=== PATIENT | male | born 1970 | race Caucasian/White ===

== ENCOUNTER 2017-10-07 13:09 | Observation (INO) | payer BC, OTHER ==
[2017-10-07 13:30] LABS: #Basophils 0.1 thou/uL (0.0-0.2); #Eosinphils 0.2 thou/uL (0.0-0.7); #Lymphocytes 3.6 thou/uL (1.20-3.40); #Monocytes 0.8 thou/uL (0.11-0.59); #Neutrophils 7.3 thou/uL (1.40-6.50); %Lymphocytes 29.9 % (21.0-51.0); %Monocytes 6.4 % (0.0-10.0); %Neutrophils 60.7 % (42.0-75.0); Hemoglobin 12.5 g/dL (14.0-18.0); Mean Corpuscular HGB CONC 34.2 g/dL (32.0-36.0); Mean Corpuscular Hemoglobin 30.6 pg (27.0-31.0); Mean Corpuscular Volume 89.3 fl (80.0-94.0); Mean Platelet Volume 6.9 fL (7.4-10.4); Platelet Count 301 thou/uL (130-400); RBC Distribution Width 12.9 % (11.5-14.5); Red Blood Cell (RBC) Count 4.09 mill/uL (4.70-6.10)
[2017-10-07 13:51] LABS: ALT (SGPT) 33 U/L (8-55); AST (SGOT) 24 U/L (5-34); Albumin 4.4 g/dL (3.5-5.0); Alkaline Phosphatase 119 U/L (40-150); Anion Gap 12 mmol/L (10-20); BUN (Urea Nitrogen) 15 mg/dL (8.9-20.6); Bilirubin, Total 0.5 mg/dL (0.2-1.2); Calc. Creatinine Clearance 0 mL/min (70-130); Calcium 9.5 mg/dL (7.8-10.44); Carbon Dioxide 28 mmol/L (22-29); Chloride 102 mmol/L (98-107); Estimated GFR-MDRD 85; Globulin 3.2 g/dL (2.4-3.5); Glucose 129 mg/dL (70-105); Potassium 3.5 mmol/L (3.5-5.1); Protein, Total 7.6 g/dL (6.0-8.3); Sodium 138 mmol/L (136-145)
[2017-10-07 13:55] LABS: CKMB 0.5 ng/mL (0-6.6); Troponin I Less than 0.010 ng/mL (< 0.028)
[2017-10-07] MEDS ORDERED: ISOVUE-370 76%-LOCM 1 ML ONE (14:00)
[2017-10-07] MEDS ORDERED: Ketorolac Tromethamine 30 MG/ML VIAL ONE (14:01)
[2017-10-07] MEDS ORDERED: Nitroglycerin 0.4 MG TAB (25 Tab Bottle) ONE (14:01)
[2017-10-07] MEDS ORDERED: Nitroglycerin 2% Ointment 1 INCH/1 GM Packet ONE (14:07)
[2017-10-07] MEDS ORDERED: Guaifenesin DM 100-10/5 ML UDCUP PO PRN (14:53)
[2017-10-07] MEDS ORDERED: Acetaminophen 325 MG TAB PO PRN (14:53)
--- NOTE | 2017-10-07 14:58 | RAD ---
PORTABLE UPRIGHT FRONTAL CHEST RADIOGRAPH: 10/07/2017 HISTORY: Pain. COMPARISON: None. FINDINGS: Mild pulmonary vascular prominence. No pneumothorax, pleural fluid, focal consolidation, or alveolar edema. IMPRESSION: No acute findings. POS: [facility]
--- NOTE | 2017-10-07 15:07 | CT ---
CT ANGIOGRAM CHEST: CT ANGIOGRAM ABDOMEN: HISTORY: Aortic dissection. Hypertension. Hyperlipidemia. Low chest pain. COMPARISON: None. TECHNIQUE: CT angiogram chest and abdomen performed after the intravenous administration of contrast, and 3D juan dering provided. FINDINGS: No aneurysmal dilatation of the aorta. No dissection. No intimal flap. No intramural hematoma. Minimal atherosclerotic plaque of the abdominal aorta. Single bilateral renal arteries. Pulmonary trunk size is not dilated. No pericardial effusion. There is focal flash filling, likely hemangioma, in hepatic segment 8, with adjacent transhepatic att enuation difference. The lungs are clear. No pneumothorax or effusion. No spine compression fracture. No displaced rib fracture. IMPRESSION: 1. No acute aortic dissection, aneurysm, or intramural hematoma. 2. No acute abnormality in the chest or abdomen. POS: [facility]
[2017-10-07 16:23] VITALS: BMI 32.2
[2017-10-07] MEDS ORDERED: diphenhydrAMINE 50 MG/ML VIAL IVP SCH (16:30)
[2017-10-07] MEDS ORDERED: Famotidine 20 MG TAB PO SCH (16:30)
[2017-10-07 17:11] LABS: Troponin I Less than 0.010 ng/mL (< 0.028)
[2017-10-07 19:48] LABS: Troponin I Less than 0.010 ng/mL (< 0.028)
--- NOTE | 2017-10-07 19:59 | HP ---
REASON FOR ADMISSION: Chest pain. HISTORY OF PRESENT ILLNESS: The patient gives history of left-sided chest pain that started around 10:00 this morning. This was radiating to left arm. He had trouble taking nice deep breaths due to severe pain. There is no relation to his breathing as such. He also developed headache, which is generalized. The chest pain was 10/10 in intensity. No cough or fever. No complaints of palpitation, PND or orthopnea. Patient states he has a followup appointment to see Dr. Lehman tomorrow at 3:00 p.m. He had a cardiac catheterization done in 2017, which showed mild to moderate coronary artery disease and a leaky valve per patient. He has had one follow up prior to this 6 months back to see Dr. Lehman and the next one is tomorrow. PAST MEDICAL/SURGICAL HISTORY: Gout, chronic oral ulcers for which he sees Dr. Yap, history of asthma, mild coronary artery disease, left forearm and hand surgery, right foot surgery, dyslipidemia, mood disorder, GERD. CURRENT MEDICATIONS: The patient is on Toprol-XL daily, Lipitor 40 mg p.o. at bedtime, Protonix 40 mg p.o. daily, hydrochlorothiazide 25 mg p.o. daily, lisinopril 40 mg daily, Prozac 40 mg daily, Xanax 1 mg p.o. at bedtime, allopurinol 300 mg p.o. daily, dapsone 150 mg twice daily, Mitigare for oral ulcers. ALLERGIES: MOTRIN. PERSONAL HISTORY: Chews tobacco, does not abuse alcohol or drugs. Lives with his . FAMILY HISTORY: Mother has had history of small cell lung cancer and in her 60s. He does not know much about his father. CODE STATUS: FULL. REVIEW OF SYSTEMS: The following complete review of systems was negative, unless otherwise mentioned in the HPI or below: Constitutional: Weight loss or gain, ability to conduct usual activities. Skin: Rash, itching. Eyes: Double vision, pain. ENT/Mouth: Nose bleeding, neck stiffness, pain, tenderness. Cardiovascular: Palpitations, dyspnea on exertion, orthopnea. Respiratory: Shortness of breath, wheezing, cough, hemoptysis, fever or night sweats. Gastrointestinal: Poor appetite, abdominal pain, heartburn, nausea, vomiting, constipation, or diarrhea. Genitourinary: Urgency, frequency, dysuria, nocturia. Musculoskeletal: Pain, swelling. Neurologic/Psychiatric: Anxiety, depression. Allergy/Immunologic: Skin rash, bleeding tendency. PHYSICAL EXAMINATION: GENERAL: The patient is a 47-year-old male who is currently not in any acute distress. VITAL SIGNS: Blood pressure 134/76, pulse 76 per minute, respiratory rate 18 per minute, temperature 98 degrees Fahrenheit, saturating 94% on room air. NECK: Supple. No elevated JVD. HEENT: Eyes, extraocular muscles intact. Pupils reacting to light. Oral cavity, mucous membranes are moist. No exudates or congestion. CARDIOVASCULAR: S1, S2 heard. Regular rhythm. RESPIRATORY: Air entry 1+ bilaterally. No rales or rhonchi. ABDOMEN: Soft, bowel sounds heard. No tenderness, rigidity or guarding. EXTREMITIES: No peripheral edema or calf tenderness. VASCULAR: Peripheral pulses 1+ bilateral, no ischemic ulcerations or gangrene. CENTRAL NERVOUS SYSTEM: No gross focal deficits seen. Patient is alert, awake , oriented well. PSYCHIATRIC: The patient's mood is euthymic. No hallucinations or delusions. LABORATORY AND X-RAY FINDINGS: EKG done shows normal sinus rhythm at 76 beats per minute. Chest x-ray done shows no acute abnormalities. First set of cardiac enzymes are negative. Albumin is 4, serum glucose 129, BUN 15, creatinine 0.9. Electrolytes are stable. White count of 12, H and H 12 and 36 , platelet count 301 with 60% neutrophils, MCV is 89. CT dissection protocol has been done, the official results are pending at present. CLINICAL IMPRESSION AND PLAN: The patient will be under observation on telemetry for chest pain to rule out ACS. He has had cardiac catheterization done last year in Dr. Lehman's office and was told he has mild to moderate disease, but there was no flow limiting disease. He was also told he has a leaky valve. He has a followup appointment to see Dr. Lehman tomorrow at 3:00 p.m. We will obtain 2 more sets of troponin. If his enzymes are negative and the patient is asymptomatic, he will be discharged home later this evening. I have also asked Dr. Lehman's office to fax over the results of his angiogram and echo. We will continue him on Plavix as patient is allergic to NSAIDs, and home dose of XANAX, ALLOPURINOL, LOPRESSOR at a lower dose and LISINOPRIL along with PROZAC as before. We will continue to closely monitor him on telemetry. MTDD
[2017-10-07] MEDS: Famotidine 20 MG TAB PO SCH (20:54)
[2017-10-07] MEDS: Metoprolol Tartrate 25 MG TAB PO SCH (20:55)
[2017-10-07] MEDS: Nitroglycerin 2% Ointment 1 INCH/1 GM Packet TOP SCH (20:56)
[2017-10-07] MEDS ORDERED: ALPRAZolam 1 MG TAB PO SCH (21:00)
[2017-10-07] MEDS ORDERED: Allopurinol 300 MG TAB PO SCH (21:00)
[2017-10-07] MEDS ORDERED: Lisinopril 20 MG TAB PO SCH (21:00)
[2017-10-07] MEDS ORDERED: FLUoxetine HCl 20 MG CAP PO SCH (21:00)
[2017-10-08 05:24] LABS: #Lymphocytes 1.4 thou/uL (1.20-3.40); #Monocytes 0.3 thou/uL (0.11-0.59); %Basophils 0.3 % (0.0-1.0); %Eosinophils 0.3 % (0.0-10.0); %Lymphocytes 18.1 % (21.0-51.0); %Monocytes 4.2 % (0.0-10.0); %Neutrophils 77.1 % (42.0-75.0); Hemoglobin 11.4 g/dL (14.0-18.0); Mean Corpuscular HGB CONC 33.5 g/dL (32.0-36.0); Mean Corpuscular Hemoglobin 30.3 pg (27.0-31.0); Mean Corpuscular Volume 90.3 fL (78.0-98.0); Mean Platelet Volume 7.4 fL (7.4-10.4); Platelet Count 282 thou/uL (130-400); RBC Distribution Width 12.8 % (11.5-14.5); Red Blood Cell (RBC) Count 3.75 mill/uL (4.70-6.10); White Blood Cell (WBC) Count 7.7 thou/uL (4.8-10.8)
[2017-10-08] MEDS: Nitroglycerin 2% Ointment 1 INCH/1 GM Packet TOP SCH (05:34)
[2017-10-08 06:02] LABS: Anion Gap 14 mmol/L (10-20); BUN (Urea Nitrogen) 15 mg/dL (8.9-20.6); Calc. Creatinine Clearance 158 mL/min (70-130); Calcium 9.2 mg/dL (7.8-10.44); Carbon Dioxide 25 mmol/L (22-29); Chloride 101 mmol/L (98-107); Cholesterol 148 mg/dl (< 200 Desired); Estimated GFR-MDRD 84; Glucose 195 mg/dL (70-105); HDL Cholesterol 37 mg/dL (>60 Neg Risk); LDL Cholesterol, Calculated 91 mg/dL; Potassium 3.6 mmol/L (3.5-5.1); Sodium 136 mmol/L (136-145); Triglycerides 102 mg/dL (Less than 150)
[2017-10-08 08:02] VITALS: BP 102/55; TEMP 97.2
[2017-10-08] MEDS ORDERED: Enoxaparin Sodium 40 MG/0.4 ML SYRINGE SC SCH (09:00)
[2017-10-08] MEDS ORDERED: Clopidogrel Bisulfate 75 MG TAB PO SCH (09:00)
[2017-10-08] MEDS: Famotidine 20 MG TAB PO SCH (09:24)
[2017-10-08] MEDS: Metoprolol Tartrate 25 MG TAB PO SCH (09:24)
[2017-10-08] MEDS ORDERED: Lidocaine 5% Patch TD STA (10:12)
--- NOTE | 2017-10-08 13:15 | PDOC.PN ---
- Subjective Encounter Start Date: 10/08/17 Encounter Start Time: 07:00 Subjective: has left chest wall pain, no sob or palp -: at bedside - Objective MAR Reviewed: Yes Vital Signs & Weight: Vital Signs (12 hours) Temp Pulse Resp BP BP Pulse Ox 10/08/17 08:15 97.2 F L 68 18 10/08/17 07:30 97.2 F L 68 18 102/55 L 97 10/08/17 07:26 96 10/08/17 07:22 71 16 96 10/08/17 04:05 97.9 F 75 16 100/55 L 92 L 10/08/17 03:23 93 L Weight Weight 258 lb 1.6 oz I&O: 10/07/17 10/08/17 10/09/17 06:59 06:59 06:59 Intake Total 831 Output Total 925 Balance -94 Result Diagrams: 10/08/17 04:05 10/08/17 04:05 Phys Exam - Physical Examination HEENT: PERRLA, moist MMs Neck: no JVD, supple Respiratory: no wheezing, no rales Cardiovascular: RRR, no significant murmur Gastrointestinal: soft, non-tender, positive bowel sounds Musculoskeletal: no edema, pulses present Neurological: non-focal, moves all 4 limbs Psychiatric: normal affect, A&O x 3 Dx/Plan (1) Chest pain Code(s): R07.9 - CHEST PAIN, UNSPECIFIED Status: Acute Comment: muscular pain, non cardiac (2) Obesity (BMI 30.0-34.9) Code(s): E66.9 - OBESITY, UNSPECIFIED Status: Chronic (3) Asthma Code(s): J45.909 - UNSPECIFIED ASTHMA, UNCOMPLICATED Status: Chronic Qualifiers: Asthma severity: mild Asthma persistence: unspecified Asthma complication type: uncomplicated Qualified Code(s): J45.909 - Unspecified asthma, uncomplicated (4) Dyslipidemia Code(s): E78.5 - HYPERLIPIDEMIA, UNSPECIFIED Status: Chronic (5) HTN (hypertension) Code(s): I10 - ESSENTIAL (PRIMARY) HYPERTENSION Status: Chronic Qualifiers: Hypertension type: essential hypertension Qualified Code(s): I10 - Essential (primary) hypertension - Plan hemostable -: has nsaid allergy, lidocaine patch -: dc pt home, to f/u with this afternoon at 3 pm * .
--- NOTE | 2017-10-08 21:37 | DIS ---
DATE OF ADMISSION: 10/07/2017 DATE OF DISCHARGE: 10/08/2017 DISCHARGE DISPOSITION: To home. PRIMARY DISCHARGE DIAGNOSIS: Noncardiac chest pain, likely muscular with tenderness to palpation in the left fifth to sixth intercostal space in the mid clavicular line. SECONDARY DISCHARGE DIAGNOSES: History of asthma, dyslipidemia, and hypertension. PROCEDURES DONE DURING HOSPITALIZATION: CT dissection protocol done showed no evidence of dissection , aneurysm or intramural hematoma. No acute abnormality was seen in the chest or abdomen. H&H 11 an d 34, platelet count 282, white count of 7. Total cholesterol 148, triglycerides 102, LDL 91, HDL 37 . Troponin x3 negative. CK-MB 0.5, BUN 15, creatinine 0.9. DISCHARGE MEDICATIONS: The patient to continue all his home medication as before. Lidocaine 5% avalos sdermal patch has been added for the muscular chest pain, to use as needed, a total of 4 patches has been prescribed. He needs to continue his Toprol, Protonix, hydrochlorothiazide, Prozac, dapsone, at orvastatin, Xanax and allopurinol as before. ALLERGIES: The patient is allergic to NSAIDs and KETOROLAC. DISCHARGE PLAN: The patient needs to follow up with Dr. Lehman at 3:00 p.m. today. He also needs to follow up with his primary care physician in 1 week. BRIEF COURSE DURING HOSPITALIZATION: The patient initially came to ER with complaints of left-sided chest pain that started around 10:00 in the morning with radiation to the left arm. He initially had this pain, which was worse on deep breathing. He had a CT dissection protocol done, which was negat meri for any acute pathology. The patient had a dose of morphine with no relief in ER and got a dose of Toradol which caused mild allergic reaction with wheals and itching. He was given a dose of Solu- Medrol, Benadryl, and Pepcid which has resolved this episode. This morning, the patient's pain is mo re muscular with tenderness to palpation in the mid clavicular line in the fifth and sixth intercosta l space. His three sets of troponin are negative. The patient has had cardiac catheterization done last year, the results of which I have reviewed. He in fact has a followup appointment at 3:[address] Lehman today. He is counseled to follow up with Dr. Lehman this afternoon. He is hemodynam ically stable. As patient is allergic to multiple NSAIDs agents, he was given lidocaine patch and to apply hot soaks to the area of left chest wall pain. He is hemodynamically stable and will be short ly discharged home. Please see a [id number] documentation on [facility] for the day of discharge.
== END 2017-10-08 10:55 | disposition home or self-care (01) ==
LOC: ERS 13:09 → 2SW 15:49
PROVIDERS: ADMIT Internal Medicine; ATTEND Internal Medicine
DX: R07.89 Other chest pain (principal); M10.9 Gout, unspecified; J45.909 Unspecified asthma, uncomplicated; I25.10 Atherosclerotic heart disease of native coronary artery without angina pectoris; E78.5 Hyperlipidemia, unspecified; K21.9 Gastro-esophageal reflux disease without esophagitis; F39 Unspecified mood [affective] disorder; F17.220 Nicotine dependence, chewing tobacco, uncomplicated; E66.9 Obesity, unspecified; Z68.32 Body mass index [BMI] 32.0-32.9, adult; Z79.899 Other long term (current) drug therapy; Z88.8 Allergy status to other drugs, medicaments and biological substances; Z88.6 Allergy status to analgesic agent
CPT/HCPCS: 36415; 71045; 71275; 80048; 80053; 80061; 82553; 84484; 85025; 93005; 94640; 94760; 96374; 96375; 96376; A4216; G0378; J1200; J1885; J2270; J2920; J7620

== ENCOUNTER 2018-06-18 15:11 | Emergency (ER) | payer BC ==
[2018-06-18 15:41] LABS: Hemoglobin 13.8 g/dL (14.0-18.0); Mean Corpuscular HGB CONC 32.8 g/dL (32.0-36.0); Mean Corpuscular Hemoglobin 27.4 pg (27.0-31.0); Mean Corpuscular Volume 83.6 fL (78.0-98.0); Mean Platelet Volume 7.6 fL (7.4-10.4); Platelet Count 242 thou/uL (130-400); Red Blood Cell (RBC) Count 5.04 mill/uL (4.70-6.10); White Blood Cell (WBC) Count 7.9 thou/uL (4.8-10.8)
--- NOTE | 2018-06-18 15:45 | RAD ---
CHEST 1 VIEW: Date: 06/18/18 HISTORY: Chest pain. COMPARISON: Radiograph dated 10/07/17. FINDINGS: Lungs are clear. No pneumothorax or effusion. Cardiac silhouette and mediastinal contours within norm al limits. IMPRESSION: No acute intrathoracic abnormality. POS: [facility]
[2018-06-18 16:00] LABS: ALT (SGPT) 36 U/L (8-55); AST (SGOT) 21 U/L (5-34); Albumin 4.1 g/dL (3.5-5.0); Alkaline Phosphatase 149 U/L (40-150); Anion Gap 14 mmol/L (10-20); BUN (Urea Nitrogen) 13 mg/dL (8.9-20.6); Bilirubin, Total 0.4 mg/dL (0.2-1.2); Calc. Creatinine Clearance 0 mL/min (70-130); Calcium 9.5 mg/dL (7.8-10.44); Carbon Dioxide 24 mmol/L (22-29); Chloride 101 mmol/L (98-107); Estimated GFR-MDRD 89; Globulin 3.3 g/dL (2.4-3.5); Glucose 104 mg/dL (70-105); Potassium 3.2 mmol/L (3.5-5.1); Protein, Total 7.4 g/dL (6.0-8.3); Sodium 136 mmol/L (136-145)
[2018-06-18 16:04] LABS: Band 3 % (5-11); Eosinophils 2 % (0-10); Lymphocytes 8 % (21-51); MDiff Complete? YES; Monocytes 6 % (0-10); Neutrophil 80 % (42-75); Platelet Morphology Comment Appears Adequate
[2018-06-18] MEDS ORDERED: Acetaminophen/Codeine 30-300mg Tablet ONE (17:11)
[2018-06-18 18:54] LABS: Troponin I Less than 0.010 ng/mL (< 0.028)
== END 2018-06-18 19:36 | disposition home or self-care (01) ==
LOC: ERS 15:11
DX: R07.9 Chest pain, unspecified (principal); J06.9 Acute upper respiratory infection, unspecified; E78.5 Hyperlipidemia, unspecified; I10 Essential (primary) hypertension; J45.909 Unspecified asthma, uncomplicated; M10.9 Gout, unspecified; F17.220 Nicotine dependence, chewing tobacco, uncomplicated; Z79.899 Other long term (current) drug therapy
CPT/HCPCS: 36415; 71045; 80053; 84484; 85025; 93005

== ENCOUNTER 2019-10-23 18:13 | Emergency (ER) | payer BC, OTHER ==
[2019-10-23] MEDS ORDERED: Dexamethasone 10 MG/ML VIAL ONE (18:56)
== END 2019-10-23 19:40 | disposition home or self-care (01) ==
LOC: ERS 18:13
DX: U07.1 COVID-19 (principal); J02.9 Acute pharyngitis, unspecified; E78.5 Hyperlipidemia, unspecified; I10 Essential (primary) hypertension; J45.909 Unspecified asthma, uncomplicated; M10.9 Gout, unspecified; Z87.891 Personal history of nicotine dependence; Z79.899 Other long term (current) drug therapy
CPT/HCPCS: J1100

== ENCOUNTER 2020-04-30 18:17 | Emergency (ER) | payer BC ==
[2020-04-30] MEDS ORDERED: HYDROcodone/Acetaminophen 10/325 mg Tablet ONE (18:32)
--- NOTE | 2020-04-30 19:10 | RAD ---
RADIOGRAPH RIGHT WRIST THREE VIEWS: Date: 04-30-2020 History: 50-year-old male with acute traumatic right wrist pain from fall. FINDINGS: No fracture is identified. However, if there is snuff box tenderness that suggests an occult scaphoid fracture, then the general recommendation is immobilization and follow up imaging in 5-10 days. Ther e is no dislocation. There are moderate/severe degenerative changes at the first CMC. IMPRESSION: 1. No fracture identified. 2. Osteoarthrosis of the first carpometacarpal joint. POS: [facility]
== END 2020-04-30 19:14 | disposition home or self-care (01) ==
LOC: ERS 18:17
DX: S63.501A Unspecified sprain of right wrist, initial encounter (principal); E78.5 Hyperlipidemia, unspecified; I10 Essential (primary) hypertension; J45.909 Unspecified asthma, uncomplicated; M10.9 Gout, unspecified; F17.220 Nicotine dependence, chewing tobacco, uncomplicated; Z79.84 Long term (current) use of oral hypoglycemic drugs; Z79.899 Other long term (current) drug therapy; W01.0XXA Fall on same level from slipping, tripping and stumbling without subsequent striking against object, initial encounter

== ENCOUNTER 2022-12-16 13:29 | Emergency (ER) | payer BC | END 2022-12-16 13:38 | disposition left against medical advice (07) | LOC: ERS 13:29 | DX: Z53.21 Procedure and treatment not carried out due to patient leaving prior to being seen by health care provider (principal) ==